=== PATIENT | female | born 1945 | race Caucasian/White ===

== ENCOUNTER 2019-03-03 09:39 | Day surgery (SDC) | payer MEDICARE ==
[~2019-03-03] VITALS: Ht 157.5 cm; Wt 80.0 kg
[2019-03-03 10:19] VITALS: BP 115/84
[2019-03-03] MEDS ORDERED: methylPREDNISolone SOD SUCC 125 MG/2 ML IVPush ONE (10:30)
[2019-03-03] MEDS ORDERED: DIPHENHYDRAMINE 50 MG/ML, 1ML IVPush ONE (10:30)
[2019-03-03] MEDS ORDERED: VITA1TAB19 PO (10:34)
[2019-03-03] MEDS ORDERED: Potassium PO (10:34)
[2019-03-03] MEDS ORDERED: ASPI-650 PO (10:34)
[2019-03-03] MEDS ORDERED: potassium (10:34)
[2019-03-03] MEDS ORDERED: NIAC500T9 PO (10:34)
[2019-03-03] MEDS ORDERED: EVOL140P PO (10:34)
[2019-03-03] MEDS ORDERED: UBID10CA7 PO (10:34)
[2019-03-03] MEDS ORDERED: LEVA15HF4 INH (10:38)
[2019-03-03] MEDS ORDERED: LYSI100010 PO (10:38)
[2019-03-03] MEDS ORDERED: MAGN400T36 PO (10:38)
[2019-03-03] MEDS ORDERED: BUDE90AE INH (10:38)
[2019-03-03] MEDS ORDERED: HEPARIN 1,000 UNITS/ML, 10ML ONE (11:31)
[2019-03-03] MEDS ORDERED: LIDOCAINE 2%, 20ML ONE (11:31)
[2019-03-03] MEDS ORDERED: TICAGRELOR 90 MG TABLET ONE (11:31)
[2019-03-03] MEDS ORDERED: BIVALIRUDIN 250 MG ONE (11:31)
[2019-03-03] MEDS ORDERED: MIDAZOLAM 1 MG/ML, 5ML ONE (11:31)
[2019-03-03] MEDS ORDERED: NITROGLYCERIN 5 MG/ML, 10ML ONE (11:31)
[2019-03-03] MEDS ORDERED: FENTANYL PF 100 MCG/2ML ONE (11:31)
[2019-03-03] MEDS ORDERED: VERAPAMIL 2.5 MG/ML, 2ML ONE (11:31)
[2019-03-03] MEDS ORDERED: DIPHENHYDRAMINE 50 MG/ML, 1ML ONE (11:57)
[2019-03-03] MEDS ORDERED: methylPREDNISolone SOD SUCC 125 MG/2 ML ONE (11:57)
[2019-03-03] MEDS ORDERED: SODIUM CHLORIDE 0.9% 1,000 ML IV SCH (12:29)
== END 2019-03-03 15:21 | disposition home or self-care (01) ==
LOC: CACL 09:39
PROVIDERS: ATTEND Internal Medicine Cardiovascular Disease
DX: I25.10 Atherosclerotic heart disease of native coronary artery without angina pectoris (principal); E04.2 Nontoxic multinodular goiter; E78.5 Hyperlipidemia, unspecified; J45.909 Unspecified asthma, uncomplicated; Z88.1 Allergy status to other antibiotic agents; Z88.0 Allergy status to penicillin; Z88.8 Allergy status to other drugs, medicaments and biological substances; Z98.890 Other specified postprocedural states
CPT/HCPCS: 93458; 99156; C1769; C1894; J1200; J1644; J2250; J2930; J3010; Q9967; J0583

== ENCOUNTER 2019-10-22 10:35 | Day surgery (SDC) | payer MEDICARE ==
[~2019-10-22] VITALS: Ht 157.5 cm; Wt 81.8 kg
[~2019-10-22 10:35] MED LIST: ASPI-650 PO; BUDE90AE INH; EVOL140P PO; LEVA15HF4 INH; LYSI100010 PO; MAGN400T36 PO; NIAC500T9 PO; Potassium PO; UBID10CA7 PO; VITA1TAB19 PO; potassium
[2019-10-22 11:41] VITALS: BP 127/80
[2019-10-22] MEDS ORDERED: B12 SC (11:41)
[2019-10-22] MEDS ORDERED: Fish oil PO (11:41)
[2019-10-22] MEDS ORDERED: DIPHENHYDRAMINE 50 MG/ML, 1ML ONE (11:45)
[2019-10-22] MEDS ORDERED: DIPHENHYDRAMINE 50 MG/ML, 1ML IVPush ONE (12:00)
[2019-10-22] MEDS ORDERED: MIDAZOLAM 1 MG/ML, 5ML ONE (13:32)
[2019-10-22] MEDS ORDERED: LIDOCAINE-MPF 1%, 5ML ONE (13:32)
[2019-10-22] MEDS ORDERED: FENTANYL PF 100 MCG/2ML ONE (13:32)
== END 2019-10-22 15:55 | disposition home or self-care (01) ==
LOC: CACL 10:35
PROVIDERS: ATTEND Internal Medicine Cardiovascular Disease
DX: R06.02 Shortness of breath (principal); I27.20 Pulmonary hypertension, unspecified; E66.3 Overweight; Z68.33 Body mass index [BMI] 33.0-33.9, adult; Z79.82 Long term (current) use of aspirin; Z79.899 Other long term (current) drug therapy; Z88.0 Allergy status to penicillin; Z88.8 Allergy status to other drugs, medicaments and biological substances; Z91.041 Radiographic dye allergy status
CPT/HCPCS: 93451; 99156; C1769; C1894; J1200; J2250; J3010